=== PATIENT | female | born 1935 | race African-American/Black ===

== ENCOUNTER 2016-11-30 06:12 | Emergency (ER) | payer OTHER ==
[2016-11-30] VITALS (9 sets, daily range): BP systolic 132–150; BP diastolic 37–52
[~2016-11-30] VITALS: Ht 167.6 cm; Wt 77.3 kg
[2016-11-30] MEDS ORDERED: TERA5 PO (06:25)
[2016-11-30] MEDS ORDERED: 0.9% SODIUM CHLORIDE 10 ML SYRINGE IVP PRN (06:30)
[2016-11-30] MEDS ORDERED: IPRATROPIUM BROMIDE 0.5 MG/2.5 ML NEB SOLUTION NEB ONE (06:30)
[2016-11-30] MEDS ORDERED: ALBUTEROL SULFATE 2.5 MG/0.5 ML NEB SOLUTION NEB ONE (06:30)
[2016-11-30] MEDS ORDERED: ALBU8.5H IH (06:34)
[2016-11-30] MEDS ORDERED: ATEN25 PO (06:34)
[2016-11-30] MEDS ORDERED: SIMV10TA6 PO (06:34)
[2016-11-30] MEDS ORDERED: HYDR-4173 PO (06:34)
[2016-11-30 06:44] LABS: BASOPHILS % (AUTO) 0.4 % (0.0-2.0); EOSINOPHILS % (AUTO) 6.8 % (1.0-6.0); LYMPHOCYTES # (AUTO) 1.5 K/uL (1.0-4.8); LYMPHOCYTES % (AUTO) 15.1 % (22.0-44.0); MEAN CORPUSCULAR HEMOGLOBIN 24.3 pg (26.0-34.0); MEAN CORPUSCULAR HGB CONC 30.5 G/dL (31.0-37.0); MEAN CORPUSCULAR VOLUME 80 fL (80-100); MONOCYTES # (AUTO) 0.5 K/uL (0.1-1.0); MONOCYTES % (AUTO) 4.5 % (2.0-9.0); NEUTROPHILS # (AUTO) 7.5 K/uL (1.8-7.7); NEUTROPHILS % (AUTO) 73.2 % (40.0-70.0); PLATELET COUNT (AUTO) 333 K/uL (150-450); RED BLOOD CELL COUNT(AUTO) 2.44 MIL/uL (4.00-5.20); WHITE BLOOD COUNT (AUTO) 10.2 K/uL (4.5-11.0)
[2016-11-30 06:46] LABS: PROTHROMBIN TIME 10.8 SEC (9.4-11.6)
[2016-11-30 06:49] LABS: ANION GAP 9 mmol/L (8-16); CALCIUM, TOTAL 8.2 mg/dL (8.8-10.5); CARBON DIOXIDE 24 mmol/L (22-29); CHLORIDE 107 mmol/L (98-107); GLOMERULAR FILTR. RATE CALC 47 mL/min (>60); SODIUM SERUM 140 mmol/L (136-145); UREA NITROGEN, BLOOD 17 mg/dL (7-18)
[2016-11-30 06:52] LABS: HEMATOCRIT 19.5 % (36-46)
[2016-11-30 06:57] LABS: LACTIC ACID 1.8 mmol/L (0.4-2.0)
[2016-11-30 07:04] LABS: PROCALCITONIN (PCT) < 0.05 ng/mL (<0.50)
[2016-11-30 07:11] LABS: B-TYPE NATRIURETIC PEPTIDE 554 pg/mL (0-100)
[2016-11-30 07:14] LABS: ALANINE AMINOTRANSFERASE 11 U/L (12-78); ALBUMIN 2.7 g/dL (3.4-5.0); ASPARTATE AMINOTRANSFERASE 16 U/L (15-37); BILIRUBIN,TOTAL 0.2 mg/dL (0.1-1.0); CREATINE KINASE MB 0.9 ng/mL (0-5); CREATINE KINASE, TOTAL 79 U/L (26-192); TOTAL PROTEIN, SERUM 7.3 g/dL (6.4-8.2)
[2016-11-30 07:25] LABS: RBC MORPHOLOGY COMMENT ABNORMAL RBC MORPH
[2016-11-30] MEDS ORDERED: CefTRIAXone 1 GM/DEXTROSE 50 ML IV ONE (07:30)
[2016-11-30] MEDS ORDERED: MethylPREDNISolone SOD SUCC 125 MG/2 ML VIAL IVP ONE (07:30)
[2016-11-30] MEDS ORDERED: SODIUM CHLORIDE 0.9% 500 ML IV ONE ×2 (07:30→10:47)
[2016-11-30] MEDS ORDERED: AZITHROMYCIN 500 MG/NS 250 ML IV ONE (07:30)
[2016-11-30 08:03] LABS: ABG BASE EXCESS -2.5 mmol/L (-2.0-3.0); ABG HCO3 22.6 mmol/L (22.0-26.0); ABG PCO2 38 mmHg (35-45); ABG PH 7.389 (7.35-7.450)
[2016-11-30 08:05] LABS: ALLEN TEST, BLOOD GAS Positive
[2016-11-30 08:06] LABS: IPAP, BG 16 cm H2O
[2016-11-30 08:12] LABS: GLUCOSE, URINE (UA) NEGATIVE (NEGATIVE); KETONES,URINE NEGATIVE (NEGATIVE); LEUKOCYTE ESTERASE ,URINE SMALL (NEGATIVE); OCCULT BLOOD,URINE NEGATIVE (NEGATIVE); PH,URINE 5.5 (5.0-8.0); PROTEIN,URINE POS 1+ (NEGATIVE)
[2016-11-30 08:28] LABS: ADD UA MICROSCOPIC YES
[2016-11-30 08:29] LABS: APPEARANCE,URINE SLIGHTLY CLOUDY (CLEAR)
[2016-11-30 08:30] LABS: RBC,URINE None Seen /HPF (0-2)
[2016-11-30 08:31] LABS: SQUAMOUS EPITHELIAL CELL,UR Few /LPF (None Seen)
== END 2016-11-30 12:28 | disposition short-term general hospital (02) ==
LOC: EMS 06:17
DX: J96.90 Respiratory failure, unspecified, unspecified whether with hypoxia or hypercapnia (principal); D64.9 Anemia, unspecified; J45.901 Unspecified asthma with (acute) exacerbation; Z88.6 Allergy status to analgesic agent; Z88.5 Allergy status to narcotic agent
CPT/HCPCS: 36415; 71010; 80053; 81001; 82270; 82271; 82550; 82553; 82805; 82962; 83605; 83880; 84145; 84484; 85025; 85610; 85730; 86850; 86900; 86901; 86920; 87040; 92950; 93005; 94640; 94660; 96365; 96366; 96375; 99291; J0456; J0696; J2930; J7040; J7613; P9016